=== PATIENT | female | born 1935 | race Caucasian/White ===

== ENCOUNTER 2019-07-27 14:14 | Emergency (ER) | payer OTHER ==
[2019-07-27 14:44] LABS: Absolute Lymphocytes (CBC) 2.8 K/uL (0.7-4.9); Hematocrit 34.6 % (36.0-45.0); Lymphocytes % 31.2 % (15.3-44.8); MPV 8.8 fL (7.6-11.3); Protime INR 1.27; RBC Red Blood Cell Count 3.73 M/uL (3.86-4.86)
[2019-07-27 15:09] LABS: ALT/SGPT 13 U/L (12-78); AST/SGOT 13 U/L (15-37); Albumin 3.5 g/dL (3.4-5.0); Alkaline Phosphatase 36 U/L (45-117); BUN Blood Urea Nitrogen 13 mg/dL (7-18); Bicarbonate 26 mmol/L (21-32); Bilirubin Direct 0.2 mg/dL (0-0.2); Bilirubin Total 0.6 mg/dL (0.2-1.0); Glucose Level 119 mg/dL (74-106); NT PRO-BNP 186 pg/mL (<450); Potassium 3.8 mmol/L (3.5-5.1); Protein, Total 6.4 g/dL (6.4-8.2); Sodium Level 137 mmol/L (136-145); Troponin (Emerg Dept Use Only) < 0.02 ng/mL (0.0-0.045)
--- NOTE | 2019-07-27 15:18 | RAD REPORT ---
EXAM DESCRIPTION: RAD - Chest Single View - 07/27/2019 2:55 pm CLINICAL HISTORY: Dyspnea COMPARISON: None. TECHNIQUE: AP portable chest image was obtained 1453 hours . FINDINGS: No peripheral mass or consolidation. Left hemidiaphragm elevation is noted. Interstitial p attern is not outside of normal range. No comparison is available. Trachea is in the midline. Heart a nd vasculature are normal. No measurable pleural effusion and no pneumothorax. No acute bony abnormal ity seen. No acute aortic findings suspected. IMPRESSION: No acute cardiopulmonary process.
--- NOTE | 2019-07-27 15:31 | EKG ---
Test Date: 2019-07-27 Test Time: 14:14:36 [facility]: NELLIE MEASUREMENT RESULTS: Intervals: Rate: 56 MI: 172 QRSD: 150 QT: 490 QTc: 472 [place]: P: 81 MI: 172 QRS: 71 T: 2 INTERPRETIVE STATEMENTS: Sinus bradycardia Right bundle branch block Septal infarct, age undetermined Abnormal ECG No previous ECG available for comparison Electronically Signed On 07-27-19 15:30:06 CDT by Jorge L Chen
--- NOTE | 2019-07-27 15:49 | ER ---
Nurse's Notes [facility] Name: Emily Trinidad Age: 84 yrs Sex: Female : 1935 Arrival Date: 07/27/2019 Time: 14:17 Bed 4 Private MD: Diagnosis: Near Syncope;Hypotension Presentation: 07/27 14:09 Presenting complaint: EMS states: was walking around an estate sale and suddenly felt sv cold/clammy/diaphoretic and was near syncope. Daughter had her sit down in a chair. On EMS arrival, pt was alert but with no radial pulse; immediately placed on the stretcher in Trendelenburg. BP 90/50 HR-60 after IV and IVF started, EKG-SR. Last BP 115/64 HR-60 RR-18 96% RA. Transition of care: patient was not received from another setting of care. Onset of symptoms was July 27, 2019. Risk Assessment: Do you want to hurt yourself or someone else? Patient reports no desire to harm self or others. Initial Sepsis Screen: Does the patient meet any 2 criteria? No. Patient's initial sepsis screen is negative. Does the patient have a suspected source of infection? No. Patient's initial sepsis screen is negative. Care prior to arrival: Medication(s) given: Normal saline infusion, 500 mL, IV initiated. 20 GA, in the left forearm, Glucose check: 183. 14:09 Method Of Arrival: EMS: [facility] sv 14:09 Acuity: MARGY 2 sv Triage Assessment: 14:15 General: Appears in no apparent distress. comfortable, well groomed, well developed, sv Behavior is calm, cooperative, appropriate for age. Pain: Denies pain. Neuro: Level of Consciousness is awake, alert, obeys commands, Oriented to person, place, time, situation, Moves all extremities. Full function Gait is steady, Speech is normal, Facial symmetry appears normal, Facial symmetry: tongue is midline, Denies blurred vision dizziness. Cardiovascular: Pulses are 2+ in right radial artery and left radial artery Rhythm is sinus bradycardia. Respiratory: Respiratory effort is even, unlabored, Respiratory pattern is regular, symmetrical. Derm: Skin is normal, Skin temperature is cool. Musculoskeletal: Range of motion: intact in all extremities. Historical: - Allergies: 14:29 Demerol; sv - PMHx: 14:29 Hypertension; Myocardial infarction; sv - PSHx: 14:29 cardiac stents; sv - Immunization history:: Adult Immunizations up to date. - Social history:: Smoking status: Patient/guardian denies using tobacco. - Ebola Screening: : No symptoms or risks identified at this time. Screenin:31 Abuse screen: Denies threats or abuse. Denies injuries from another. Nutritional sv screening: No deficits noted. Tuberculosis screening: No symptoms or risk factors identified. Fall Risk None identified. Assessment: 14:59 Reassessment: Patient appears in no apparent distress at this time. No changes from sv previously documented assessment. Patient and/or family updated on plan of care and expected duration. Pain level reassessed. Patient is alert, oriented x 3, equal unlabored respirations, skin warm/dry/pink. 15:59 Reassessment: Patient appears in no apparent distress at this time. No changes from sv previously documented assessment. Patient and/or family updated on plan of care and expected duration. Pain level reassessed. Patient is alert, oriented x 3, equal unlabored respirations, skin warm/dry/pink. Vital Signs: 14:25 BP 126 / 53; Pulse 57; Resp 12; Temp 97.7(O); Pulse Ox 100% ; Pain 0/10; sv 14:28 BP 122 / 47; Pulse 57; Resp 14; Pulse Ox 98% on R/A; mh5 14:30 BP 123 / 63; Pulse 57; Resp 12; Pulse Ox 97% on R/A; mh5 14:32 BP 122 / 53; Pulse 58; Resp 14; Pulse Ox 100% on R/A; mh5 15:33 BP 116 / 48; Pulse 58; Resp 12; Pulse Ox 100% ; sv [place] Coma Score: 14:25 Eye Response: spontaneous(4). Verbal Response: oriented(5). Motor Response: obeys sv commands(6). Total: 15. ED Course: 14:15 panel monitor on. Pulse ox on. NIBP on. Door closed. Warm blanket given. Head of bed sv elevated. 14:17 Patient arrived in ED. ss 14:20 Patient has correct armband on for positive identification. Bed in low position. Call sv light in reach. 14:23 Pete Park PA is PHCP. jr8 14:23 Ranjit Tim MD is Attending Physician. jr8 14:25 Edwige Jackson, RN is Primary Nurse. sv 14:25 CBC with Diff Sent. sv 14:25 LFT's Sent. sv 14:25 Magnesium Sent. sv 14:25 NT PRO-BNP Sent. sv 14:25 PT-INR Sent. sv 14:25 Troponin (emerg Dept Use Only) Sent. sv 14:29 Triage completed. sv 14:30 Arm band placed on. sv 14:32 Awaiting lab results, Awaiting for x-ray. sv 14:39 EKG done, by electronics engineering technologist. reviewed by Pete LAST. sm3 14:55 XRAY Chest (1 view) In Process Unspecified. EDMS 14:59 Awaiting lab results. sv 15:59 No provider procedures requiring assistance completed. IV discontinued, intact, sv bleeding controlled, No redness/swelling at site. Pressure dressing applied. Administered Medications: No medications were administered Point of Care Testing: Blood Glucose: 14:25 Blood Glucose: 130 mg/dL; sv Ranges: Outcome: 15:49 Discharge ordered by . jr8 15:59 Discharged to home via wheelchair, with family. sv 15:59 Condition: stable 15:59 Discharge instructions given to patient, family, Instructed on discharge instructions, follow up and referral plans. Demonstrated understanding of instructions, follow-up care. 15:59 Patient left the ED. sv Signatures: Dispatcher [employer] EDGA Edwige Jackson, NAUN MAGALLON Latoya Sloan RN RN ss Roszak, Josh, PA PA [address] [facility] Leida Sanchez sm3 Corrections: (The following items were deleted from the chart) 14:32 14:32 Awaiting lab results, sv sv 14:33 14:29 BP 126 / 53; Pulse 57bpm; Resp 12bpm; Pulse Ox 100%; Temp 97.7F Oral; Pain 0/10; sv sv
--- NOTE | 2019-07-27 15:50 | EDPHYS ---
Physician Documentation [facility] Name: Emily Trinidad Age: 84 yrs Sex: Female : 1935 Arrival Date: 07/27/2019 Time: 14:17 Bed 4 Private MD: ED Physician Ranjit Tim HPI: 07/27 15:52 This 84 yrs old Female presents to ER via EMS with complaints of Near Syncope.jr8 15:52 The patient has experienced near-syncope, felt dizzy, felt faint. Onset: The jr8 symptoms/episode began/occurred acutely, today. Duration: This was a single episode. Context: the episode(s) was witnessed, by family, occurred at a store, occurred while the patient was standing. Associated injury: The patient did not suffer any apparent associated injury. Associated signs and symptoms: Pertinent positives: diaphoresis. Current symptoms: Currently, the patient is not experiencing any symptoms, the patient feels back to baseline, no decreased level of consciousness, no confusion, no dysphasia, no headache, no paralysis, no visual changes. The patient has not experienced similar symptoms in the past. The patient has not recently seen a physician. Patient stated that while walking started to feel dizzy. Stated that she then became faint along with cool and diaphoretic. Family had to help her sit down. EMS stated that symptoms were persistent upon arrival. Had put patient in Trendelenburg and started to give her fluids. Initial BP in the 90s. Patient upon arrival to ED now without any symptoms . Historical: - Allergies: 14:29 Demerol; sv - PMHx: 14:29 Hypertension; Myocardial infarction; sv - PSHx: 14:29 cardiac stents; sv - Immunization history:: Adult Immunizations up to date. - Social history:: Smoking status: Patient/guardian denies using tobacco. - Ebola Screening: : No symptoms or risks identified at this time. ROS: 15:52 Eyes: Negative for injury, pain, redness, and discharge, ENT: Negative for injury, jr8 pain, and discharge, Neck: Negative for injury, pain, and swelling, Cardiovascular: Negative for chest pain, palpitations, and edema, Respiratory: Negative for shortness of breath, cough, wheezing, and pleuritic chest pain, Abdomen/GI: Negative for abdominal pain, nausea, vomiting, diarrhea, and constipation, Back: Negative for injury and pain, MS/Extremity: Negative for injury and deformity, Skin: Negative for injury, rash, and discoloration. 15:52 Neuro: Positive for dizziness, near syncope. Exam: 15:52 Constitutional: This is a well developed, well nourished patient who is awake, alert, jr8 and in no acute distress. Eyes: Pupils equal round and reactive to light, extra-ocular motions intact. Lids and lashes normal. Conjunctiva and sclera are non-icteric and not injected. Cornea within normal limits. Periorbital areas with no swelling, redness, or edema. ENT: Nares patent. No nasal discharge, no septal abnormalities noted. Tympanic membranes are normal and external auditory canals are clear. Oropharynx with no redness, swelling, or masses, exudates, or evidence of obstruction, uvula midline. Mucous membranes moist. Neck: Trachea midline, no thyromegaly or masses palpated, and no cervical lymphadenopathy. Supple, full range of motion without nuchal rigidity, or vertebral point tenderness. No Meningismus. Cardiovascular: Regular rate and rhythm with a normal S1 and S2. No gallops, murmurs, or rubs. Normal PMI, no JVD. No pulse deficits. Respiratory: Lungs have equal breath sounds bilaterally, clear to auscultation and percussion. No rales, rhonchi or wheezes noted. No increased work of breathing, no retractions or nasal flaring. Abdomen/GI: Soft, non-tender, with normal bowel sounds. No distension or tympany. No guarding or rebound. No evidence of tenderness throughout. Back: No spinal tenderness. No costovertebral tenderness. Full range of motion. Skin: Warm, dry with normal turgor. Normal color with no rashes, no lesions, and no evidence of cellulitis. MS/ Extremity: Pulses equal, no cyanosis. Neurovascular intact. Full, normal range of motion. Neuro: Awake and alert, GCS 15, oriented to person, place, time, and situation. Cranial nerves II-XII grossly intact. Motor strength 5/5 in all extremities. Sensory grossly intact. Cerebellar exam normal. Normal gait. Vital Signs: 14:25 BP 126 / 53; Pulse 57; Resp 12; Temp 97.7(O); Pulse Ox 100% ; Pain 0/10; sv 14:28 BP 122 / 47; Pulse 57; Resp 14; Pulse Ox 98% on R/A; mh5 14:30 BP 123 / 63; Pulse 57; Resp 12; Pulse Ox 97% on R/A; mh5 14:32 BP 122 / 53; Pulse 58; Resp 14; Pulse Ox 100% on R/A; mh5 15:33 BP 116 / 48; Pulse 58; Resp 12; Pulse Ox 100% ; sv [place] Coma Score: 14:25 Eye Response: spontaneous(4). Verbal Response: oriented(5). Motor Response: obeys sv commands(6). Total: 15. MDM: 14:23 Patient medically screened. jr8 15:47 Data reviewed: vital signs, nurses notes, lab test result(s), EKG, radiologic studies, jr8 plain films. Data interpreted: Pulse oximetry: on room air is 100 %. Interpretation: normal. Counseling: I had a detailed discussion with the patient and/or guardian regarding: the historical points, exam findings, and any diagnostic results supporting the discharge/admit diagnosis, lab results, radiology results, the need for outpatient follow up, a family practitioner, to return to the emergency department if symptoms worsen or persist or if there are any questions or concerns that arise at home. Response to treatment: the patient's symptoms have resolved after treatment, the patient's blood pressure is in an acceptable range. 07/27 14:24 Order name: Basic Metabolic Panel; Complete Time: 15:07/27 14:24 Order name: CBC with Diff; Complete Time: 15:07/27 14:24 Order name: LFT's; Complete Time: 15:07/27 14:24 Order name: Magnesium; Complete Time: 15:13 07/27 14:24 Order name: NT PRO-BNP; Complete Time: 15:13 07/27 14:24 Order name: PT-INR; Complete Time: 15:13 07/27 14:24 Order name: Glucose, Ancillary Testing; Complete Time: 14:24 EDMS 07/27 14:24 Order name: Troponin (emerg Dept Use Only); Complete Time: 15:13 07/27 14:24 Order name: XRAY Chest (1 view); Complete Time: 15:28 07/27 14:24 Order name: EKG; Complete Time: 14:07/27 14:24 Order name: Cardiac monitoring; Complete Time: 14:07/27 14:24 Order name: EKG - Nurse/Tech; Complete Time: 14:07/27 14:24 Order name: IV Saline Lock; Complete Time: 14:07/27 14:24 Order name: Labs collected and sent; Complete Time: 14:07/27 14:24 Order name: O2 Per Protocol; Complete Time: 14:07/27 14:24 Order name: O2 Sat Monitoring; Complete Time: 14:07/27 14:24 Order name: Orthostatics; Complete Time: 14:33 jr8 Administered Medications: No medications were administered Point of Care Testing: Blood Glucose: 14: Blood Glucose: 130 mg/dL; sv Ranges: Critical Glucose Levels:Adult <50 mg/dl or >400 mg/dl <40 mg/dl or >180 mg/dl Disposition: 18:32 Co-signature as Attending Physician, Ranjit Tim MD. rn Disposition: 07/27/19 15:49 Discharged to Home. Impression: Near Syncope, Hypotension. - Condition is Stable. - Discharge Instructions: Hypotension. - Medication Reconciliation Form, Thank You Letter, Antibiotic Education, Prescription Opioid Use form. - Follow up: Private Physician; When: 2 - 3 days; Reason: Recheck today's complaints, Continuance of care, Re-evaluation by your physician. - Problem is new. - Symptoms have improved. Signatures: Dispatcher [employer] Edwige Alexandra RN RN sv Nieto, Roman, MD MD rn Roszak, Josh, PA PA jr8 Corrections: (The following items were deleted from the chart) 15:59 15:49 07/27/2019 15:49 Discharged to Home. Impression: Near Syncope; Hypotension. sv Condition is Stable. Forms are Medication Reconciliation Form, Thank You Letter, Antibiotic Education, Prescription Opioid Use. Follow up: Private Physician; When: 2 - 3 days; Reason: Recheck today's complaints, Continuance of care, Re-evaluation by your physician. Problem is new. Symptoms have improved. jr8
[2019-07-27 16:08] VITALS: TEMP 97.7
[2019-07-27 16:13] VITALS: O2SAT 100
[2019-07-27 16:15] VITALS: BP 116/48
== END 2019-07-27 15:59 | disposition home or self-care (01) ==
LOC: ER 14:14
DX: I95.9 Hypotension, unspecified (principal); R55 Syncope and collapse; Z88.6 Allergy status to analgesic agent; Z95.5 Presence of coronary angioplasty implant and graft
CPT/HCPCS: 36415; 71045; 80048; 80076; 82962; 83735; 83880; 84484; 85025; 85610; 93005; 99284